=== PATIENT | female | born 1955 | race Caucasian/White ===

== ENCOUNTER → 2018-02-04 17:42 | Outpatient (REF) | payer OTHER, SELFPAY | LOC: LAB 17:42 | PROVIDERS: PCP Physician Assistant; Visit Provider Otolaryngology Facial Plastic Surgery | DX: L72.0 Epidermal cyst (principal) | CPT/HCPCS: 87070; 87147; 87205 ==

== ENCOUNTER → 2018-05-21 11:29 | Outpatient (CLI) | payer OTHER, SELFPAY ==
--- NOTE | 2018-05-21 | DI.MG.S_ITS ---
BILATERAL DIGITAL SCREENING MAMMOGRAM 3D/2D WITH CAD: 05/21/2018 CLINICAL: Routine screening. Family history of breast cancer. Comparison is made to exams dated: 03/03/2015 mammogram, 06/03/2013 mammogram, and 05/10/2012 mammogram - [facility]. The tissue of both breasts is heterogeneously dense. This may lower the sensitivity of mammography. Current study was also evaluated with a Computer Aided Detection (CAD) system. No significant masses, calcifications, or other findings are seen in either breast. There has been no significant interval change. IMPRESSION: NEGATIVE There is no mammographic evidence of malignancy. A 1 year screening mammogram is recommended. This exam was interpreted at Station ID: [id number]. NOTE: For mammograms, a report in lay terms will be sent to the patient. Approximately 15% of breast malignancies will not be visualized mammographically. In the management of a palpable breast mass, a negative mammogram must not discourage biopsy of a clinically suspicious lesion. Electronically Signed By: Carlos A goodman/linden:05/21/2018 16:31:46 copy to: [employer]EL [employer] letter sent: Normal Exam ACR BI-RADS Category 1: Negative 3341F
--- NOTE | 2018-05-21 11:32 | DI.MRI.S_ITS ---
PROCEDURE: MR HEAD/BRAIN WO CON INDICATIONS: Change in headaches the past 2 years TECHNIQUE: Non-contrast axial T1 spin echo, axial T2 fast spin echo, sagittal and axial FLAIR, coronal T2 fast spin echo, axial gradient echo, axial diffusion and ADC through the brain. COMPARISON: None. FINDINGS: Image quality: Excellent. CSF spaces: Ventricles appear symmetric in size and shape. Basal cisterns are patent. No extra-axial fluid collections. Brain: No intracranial bleeds or mass effects. There is mild cerebral volume loss for age. There are mild periventricular and deep white matter chronic small vessel ischemic changes. Brainstem appears normal. Diffusion-weighted images show no acute ischemic insults. No chronic ischemic insults. Normal intravascular flow voids are present. Skull and face: Calvarial bone marrow is normal in signal. Orbits are normal. Sinuses: Sinuses and mastoids are clear. IMPRESSION: 1. No acute intracranial abnormalities. 2. Mild age appropriate cerebral volume loss and chronic microvascular ischemic changes. Dictated by: Yunier Stone M.D. on 05/21/2018 at 13:10 Approved by: Yunier Stone M.D. on 05/21/2018 at 17:44
== END ==
PROVIDERS: PCP Physician Assistant; Visit Provider Family Medicine
DX: Z12.31 Encounter for screening mammogram for malignant neoplasm of breast (principal); G43.709 Chronic migraine without aura, not intractable, without status migrainosus; Z80.3 Family history of malignant neoplasm of breast
CPT/HCPCS: 70551; 77063; 77067

== ENCOUNTER → 2019-04-22 13:58 | Outpatient (ROUT) | payer OTHER, SELFPAY ==
[2019-04-22 14:05] LABS: Add Manual Diff / Slide Review NO; Basophils Absolute Auto 0 /uL (0-100); Basophils Percent Auto 0.8 % (0-2); Eosinophils Absolute Auto 100 /uL (0-450); Eosinophils Percent Auto 2.1 % (2-4); Hematocrit 40.3 % (36-46); Hemoglobin 13.9 g/dL (12.0-16.0); Lymphocytes Absolute Auto 1200 /uL (1100-4500); Lymphocytes Percent Auto 29.8 % (25-40); Mean Corpuscular HGB Conc 34.3 % (30-36); Mean Corpuscular Hemoglobin 31.7 PG (26-34); Mean Corpuscular Volume 92.4 fL (80-100); Monocytes Absolute Auto 300 /uL (0-900); Monocytes Percent Auto 6.8 % (3-14); Neutrophils Absolute Auto 2400 /uL (1500-7000); Neutrophils Percent Auto 60.5 % (50-75); Platelet Count 219 X10^3/uL (150-400); Red Blood Cell Count 4.37 X10^6/uL (4.0-5.2); Red Cell Distribution Width 12.4 % (11.6-14.8)
[2019-04-22 14:12] LABS: Alanine Aminotransferase 26 IU/L (<35); Albumin 4.6 g/dL (3.5-5.0); Albumin Globulin Ratio 1.6 (1.0-2.8); Alkaline Phosphatase 72 U/L (38-126); Aspartate Aminotransferase 23 IU/L (14-36); BUN Creatinine Ratio 21.4 (6-22); Bilirubin Total 0.5 mg/dL (0.2-1.3); Blood Urea Nitrogen 15 mg/dL (7-17); Carbon Dioxide 26 mmol/L (22-32); Chloride 102 mmol/L (98-107); Cholesterol 233 mg/dL (140-199); Estimated Glomerular Filt Rate > 60.0 mL/min (>60); Globulin 2.8 g/dL (1.7-4.1); Glucose 95 mg/dL (80-110); HDL Cholesterol 79 mg/dL (40-60); HEMOLYSIS < 15 (0-50); LDL Cholesterol Calculated 145 mg/dL (<100); Potassium 4.1 mmol/L (3.4-5.1); Sodium 139 mmol/L (137-145); Total Protein 7.4 g/dL (6.3-8.2); Triglycerides 45 mg/dL (35-150)
[2019-04-22 14:42] LABS: TSH w/ Reflex to FT4 1.27 uIU/mL (0.47-4.68)
== END ==
PROVIDERS: PCP Physician Assistant; Visit Provider Physician Assistant
DX: E03.9 Hypothyroidism, unspecified (principal); E78.5 Hyperlipidemia, unspecified
CPT/HCPCS: 80053; 80061; 84443; 85025

== ENCOUNTER → 2019-10-20 11:50 | Outpatient (CLI) | payer OTHER, SELFPAY ==
--- NOTE | 2019-10-20 | DI.MG.S_ITS ---
BILATERAL DIGITAL SCREENING MAMMOGRAM 3D/2D WITH CAD: 10/20/2019 CLINICAL: Routine screening. Family history of breast cancer. Comparison is made to exams dated: 05/21/2018 mammogram, 03/03/2015 mammogram, and 06/03/2013 mammogram - [facility]. The tissue of both breasts is heterogeneously dense. This may lower the sensitivity of mammography. Current study was also evaluated with a Computer Aided Detection (CAD) system. No significant masses, calcifications, or other findings are seen in either breast. There has been no significant interval change. IMPRESSION: NEGATIVE There is no mammographic evidence of malignancy. A 1 year screening mammogram is recommended. This exam was interpreted at Station ID: [id number]. NOTE: For mammograms, a report in lay terms will be sent to the patient. Approximately 15% of breast malignancies will not be visualized mammographically. In the management of a palpable breast mass, a negative mammogram must not discourage biopsy of a clinically suspicious lesion. Electronically Signed By: Lina rodriguez/linden:10/20/2019 15:01:22 copy to: [employer] letter sent: Normal Exam ACR BI-RADS Category 1: Negative 3341F
== END ==
PROVIDERS: PCP Physician Assistant; Referring Provider Physician Assistant; Visit Provider Physician Assistant
DX: Z12.31 Encounter for screening mammogram for malignant neoplasm of breast (principal); Z80.3 Family history of malignant neoplasm of breast
CPT/HCPCS: 77063; 77067

== ENCOUNTER → 2020-11-18 11:13 | Outpatient (CLI) | payer MEDICARE, OTHER, SELFPAY | PROVIDERS: PCP Physician Assistant; Referring Provider Physician Assistant; Visit Provider Physician Assistant | DX: Z13.820 Encounter for screening for osteoporosis (principal); M85.851 Other specified disorders of bone density and structure, right thigh; Z78.0 Asymptomatic menopausal state | CPT/HCPCS: 77080 ==

== ENCOUNTER → 2021-12-28 07:50 | Outpatient (CLI) | payer MEDICARE, OTHER, SELFPAY ==
--- NOTE | 2021-12-28 07:53 | DI.MG.S_ITS ---
BILATERAL DIGITAL SCREENING MAMMOGRAM 3D/2D WITH CAD: 12/28/2021 CLINICAL: Routine screening. Family history of breast cancer. Comparison is made to exams dated: 10/20/2019 mammogram, 05/21/2018 mammogram, and 03/03/2015 mammogram - [facility]. Both breasts are heterogeneously dense, which may obscure small masses (category c / 51-75% glandular tissue). Current study was also evaluated with a Computer Aided Detection (CAD) system. No significant masses, calcifications, or other findings are seen in either breast. There has been no significant interval change. IMPRESSION: NEGATIVE There is no mammographic evidence of malignancy. A 1 year screening mammogram is recommended. Based on Tyrer-Cuzick model (a risk assessment model), the patient's lifetime risk is 28.7% and her 10 year risk is 15.4%. If a patient has an elevated risk, a more comprehensive evaluation should be considered and/or a referral to a genetic counselor. The [place] [employer], [employer], and NCCN Guidelines advise the consideration of Breast MRI as an adjunct to screening mammography in patients whose Lifetime risk to develop breast cancer is 20% or higher. This exam was interpreted at Station ID: [id number]. NOTE: For mammograms, a report in lay terms will be sent to the patient. Approximately 15% of breast malignancies will not be visualized mammographically. In the management of a palpable breast mass, a negative mammogram must not discourage biopsy of a clinically suspicious lesion. Electronically Signed By: Cheko Cat M.D., jr/linden:12/28/2021 13:33:25 copy to: [employer] letter sent: Normal Exam ACR BI-RADS Category 1: Negative 3341F
== END ==
PROVIDERS: PCP Internal Medicine; Visit Provider Physician Assistant
DX: Z12.31 Encounter for screening mammogram for malignant neoplasm of breast (principal); Z80.3 Family history of malignant neoplasm of breast
CPT/HCPCS: 77063; 77067

== ENCOUNTER → 2022-06-07 16:44 | Outpatient (CLI) | payer MEDICARE, OTHER, SELFPAY ==
--- NOTE | 2022-06-07 | DI.RAD.S_ITS ---
PROCEDURE: XR HIP W PEL IF DONE LUCIAN MIN 4V INDICATIONS: RT HIP PAIN TECHNIQUE: AP pelvis with lateral view(s) of the right and left hip(s). COMPARISON: None. FINDINGS: Bones: No fractures or dislocations. Pelvic ring appears intact. No suspicious bony lesions. Mild joint space narrowing of both hips. Soft tissues: The visualized bowel gas pattern is normal. No suspicious soft tissue calcifications. IMPRESSION: Mild degenerative changes of both hips. Dictated by: Carter Barber M.D. on 06/08/2022 at 9:45 Approved by: Carter Barber M.D. on 06/08/2022 at 9:48
== END ==
PROVIDERS: PCP Physician Assistant; Referring Provider Physician Assistant; Visit Provider Physician Assistant
DX: M25.551 Pain in right hip (principal)
CPT/HCPCS: 73522

== ENCOUNTER → 2022-06-14 09:03 | Outpatient (CLI) | payer MEDICARE, OTHER, SELFPAY ==
--- NOTE | 2022-06-14 | DI.MRI.S_ITS ---
PROCEDURE: MR LUMBAR SPINE WO CON INDICATIONS: Lumbago with sciatica, right side TECHNIQUE: Noncontrast sagittal T1 spin echo and T2 fast echo, sagittal STIR, and T2 fast spin echo through the lumbar spine. In cases with scoliosis, additional coronal T2 fast spin echo may be performed. COMPARISON: None. FINDINGS: Image quality: Excellent. Alignment and Curvature: There is normal bony alignment. Bone Marrow: Marrow is of normal overall signal. No acute vertebral body compression fractures. Spinal Cord: Conus medullaris terminates at the L1 level. Visualized cord demonstrates normal signal and size. Paraspinous Soft Tissues: No paravertebral masses. T12-L1: Normal appearance. L1-L2: Normal appearance. L2-L3: Disc desiccation. Broad-based disc bulge and disc osteophyte complex causes mild spinal canal narrowing. L3-L4: Disc desiccation. Broad-based disc bulge with mild spinal canal narrowing. Mild facet arthrosis. L4-L5: Disc desiccation. Broad-based disc bulge and ligamentum flavum hypertrophy causes moderate spinal canal narrowing. Mild right neural foraminal narrowing. L5-S1: Disc desiccation and broad-based disc bulge. Ligamentum flavum hypertrophy and mild facet arthrosis. IMPRESSION: Mild, multilevel degenerative disc disease and facet arthrosis, most prominent at L4-5 with moderate spinal canal narrowing and mild right neural foraminal narrowing due to degenerative disc disease, ligamentum flavum hypertrophy and facet arthrosis. Dictated by: Ethan Mahajan M.D. on 06/14/2022 at 10:51 Approved by: Ethan Mahajan M.D. on 06/14/2022 at 11:00
== END ==
PROVIDERS: PCP Physician Assistant; Referring Provider Physician Assistant; Visit Provider Physician Assistant
DX: M51.16 Intervertebral disc disorders with radiculopathy, lumbar region (principal); M51.17 Intervertebral disc disorders with radiculopathy, lumbosacral region; M47.26 Other spondylosis with radiculopathy, lumbar region; M47.27 Other spondylosis with radiculopathy, lumbosacral region; M25.551 Pain in right hip
CPT/HCPCS: 72148

== ENCOUNTER → 2022-10-18 09:00 | Outpatient (CLI) | payer MEDICARE, OTHER, SELFPAY ==
[2022-10-18 12:11] LABS: Add Manual Diff / Slide Review NO; Basophils Absolute Auto 0 /uL (0-100); Basophils Percent Auto 0.9 % (0-2); Eosinophils Absolute Auto 100 /uL (0-450); Eosinophils Percent Auto 1.8 % (2-4); Hemoglobin 13.7 g/dL (12.0-16.0); Lymphocytes Absolute Auto 900 /uL (1100-4500); Lymphocytes Percent Auto 26.6 % (25-40); Mean Corpuscular HGB Conc 34.4 % (30-36); Mean Corpuscular Hemoglobin 31.3 PG (26-34); Mean Corpuscular Volume 91.2 fL (80-100); Monocytes Absolute Auto 200 /uL (0-900); Monocytes Percent Auto 6.4 % (3-14); Neutrophils Absolute Auto 2200 /uL (1500-7000); Neutrophils Percent Auto 64.3 % (50-75); Platelet Count 237 X10^3/uL (150-400); Red Blood Cell Count 4.39 X10^6/uL (4.0-5.2); Red Cell Distribution Width 12.7 % (11.6-14.8); White Blood Cell Count 3.5 X10^3/uL (4.5-11.0)
[2022-10-18 12:29] LABS: BUN Creatinine Ratio 24.6 (6-22); Blood Urea Nitrogen 15 mg/dL (7-17); Calcium 9.8 mg/dL (8.4-10.2); Carbon Dioxide 27 mmol/L (22-32); Chloride 95 mmol/L (98-107); Estimated Glomerular Filt Rate > 60 mL/min (>60); Glucose 79 mg/dL (80-110); HEMOLYSIS < 15 (0-50); Sodium 131 mmol/L (137-145)
[2022-10-19 07:43] LABS: Labcorp Hemoglobin (Hb) A1c 5.5 % (4.8-5.6)
== END ==
PROVIDERS: PCP Physician Assistant; Referring Provider Orthopaedic Surgery Orthopaedic Surgery of the Spine; Visit Provider Orthopaedic Surgery Orthopaedic Surgery of the Spine
DX: Z01.818 Encounter for other preprocedural examination (principal); R73.9 Hyperglycemia, unspecified; Z01.812 Encounter for preprocedural laboratory examination
CPT/HCPCS: 36415; 80048; 83036; 85025; 93005

== ENCOUNTER 2022-11-20 08:43 | Inpatient (IN) | payer MEDICARE, OTHER, SELFPAY ==
[2022-10-31 09:54] VITALS: BMI 24.0
[2022-11-20] VITALS (15 sets, daily range): BP systolic 104–132; BP diastolic 57–86; PULSE 70–100; RESP 14–21; TEMP 35.9–36.8; O2SAT 95–100; BMI 24.0
[2022-11-20] MEDS: LACTATED RINGERS 1,000 ML 42 ML IV ×2 (09:37→12:44)
--- NOTE | 2022-11-20 10:24 | PM.PREOP ---
Pre-operative Note COVID-19 Criteria for continued procedure: Expected advancement of disease process, Possibility delay results in more complex future surgery or treatment, Increased loss of function, Continuing or worsening of significant or severe pain, Deterioration of the patient's condition or overall health and Delay expected to result in less-positive ultimate med/surg outcome Interval Note History & Physical reviewed/Exam performed by Physician: Yes Changes to H&P: No
[2022-11-20] MEDS: CEFAZOLIN 2 GM/100 ML PREMIX 100 ML IV ×2 (11:05→18:07)
--- NOTE | 2022-11-20 11:24 | SUR.OPER ---
Prone on spine table, head in foam head support, padded chest and pelvic supports, gel pad at knees, lower legs supported by pillows; nipples, genitalia and toes free of pressure, arms secured on foam padded arm boards at <90 degrees abduction. Tape over blanket at thigh secured to table.
[2022-11-20] MEDS: BUPIVACAINE 0.25% (PF) 60 ML, EPINEPHrine 0.15 MG INJ (12:03)
[2022-11-20] MEDS: BUPIVACAINE LIPOSOME 266 MG/20 ML VIAL INJ (12:53)
--- NOTE | 2022-11-20 13:04 | P.OP_ITS ---
Operative Date/Time/Diagnoses Date of procedure: 11/20/22 Time of procedure: 10:45 Pre-op diagnosis: 1. L4-5 spondylolisthesis 2. L4-5 spinal stenosis with radiculopathy Post-op diagnosis: same Procedure & Clinicians Procedure: 1. L4-5 Postero-lateral and posterior interbody fusion 2. L4-5 interbody cage placement. 3. L4-5 decompressive laminectomy with bilateral facetecomies 4. L4-5 Posterior non-segmental instrumentation 5. [place] of bone marrow from iliac crest 6. Utilization of microsurgical technique and operating microscope Same procedure as scheduled: Yes Indications: Patient has been having chronic back pain and worsening lumbar radiculopathy. Patient failed multiple conservative management with worsening pain weakness and numbness in her lower extremity. Patient has been having difficulty performing activity of daily living. After discussing risks benefits of treatment options, patient elected proceed with surgery. Surgeon: Noel Zee Packer Operator Automatic: Mabel Craven Click Yes if Unassisted: No Anesthesia Type: General Operative Notes Closure Type: primary Specimen(s): none sent Prosthetic devices, grafts, tissues, transplants, or devices: Globus revolve screws, Rise cage Estimated Blood Loss (mL): 50 Blood products transfused: none Procedure in detail: Patient was seen in the preoperative area. Risks and benefits of the surgery was discussed with the patient. Informed consent was obtained from the patient and placed in the chart. Surgical site was marked. Patient was taken to the operative room. General anesthesia was administered. Prophylactic antibiotic was given to the patient less than 30 min before the incision was made. Patient was placed into a prone position on the Silvino table. Patient's back was then prepped and draped in the sterile fashion. Time-out was performed at this time. Using AP and lateral C-arm imaging the interval between L4-5 was identified and marked on patient's back. A 2 inch incision 2 in from midline was made on the right side first. The fascia was incised in line with skin incision. Globus MARS retractors was placed inside the incision and docked onto the L4 lamina. Using microsurgical technique and operating microscope, a L4 laminectomy and L4- 5 facetectomy was performed using a Kerrison rongeur. The laminectomy and facetectomy was performed in order to decompress patient's cauda equina as well as the nerve roots exiting at the L4-5 level. The disc space at L4-5 was identified. And a total diskectomy was performed at L4-5 level. The endplates were decorticated using a rasp and shaver. The total diskectomy and decortication was performed at L4-5 level in order to to accomplish a L4-5 fusion. The local bone from the laminectomy and facetectomy was saved for local bone grafting. After the total diskectomy and decortication was completed, Tr ifecta bone graft material was combined with local bone that was harvested earlier. At this time, a separate skin is incision was made over the iliac crest. A Jamshidi needle was inserted into the iliac crest through a separate skin incision. 5 cc of bone marrow aspiration was obtained through the separate skin incision using a Jamshidi needle from the iliac crest. The bone marrow aspiration was combined with local bone and the Trifecta bone grafting material. The bone grafting material was placed into the L4-5 interbody space along with a expandable cage. The cage was expanded to its maximum height using the torque limiting screwdriver. At this time a mirror image incision was made on the left side. The fascia was incised in line with the skin incision. Globus MARS retractor was inserted and docked onto the L4-5 posterolateral gutter. Using the power drill, posterior- lateral decortication was performed at L4-5 level until bleeding cortical bone was identified. The remaining bone grafting material was placed into the L4-5 posterior lateral gutter he order to accomplish posterolateral fusion at the L4- 5 level. Using the double C-arm technique, pedicle screws were placed into the L4-5 pedicles bilaterally. This was done by placing the Jamshidi needle into the pedicles, then placing the guidewires over the Jamshidi needle, and finally placing the cannulated screws over the guidewires bilaterally. After the pedicle screws were placed, 2 titanium rods was locked into the heads of the pedicle screws using locking caps and torque limiting screwdriver. After all the hardware was placed, and confirmed with AP and lateral C-arm imaging, the wound was then irrigated with sterile normal saline and packed with Ray-Del gauze for 3 min to accomplish hemostasis. After the gauze was removed the deep fascia was closed with #1 Vicryl suture. The subcutaneous layer was closed with 2-0 Vicryl. The skin was closed with skin edenilson. Patient tolerated the procedure well. There were no complications. The Operation could not have been safely performed without compromising the technical result or length of the procedure, without the assistance of a skilled ophthalmology surgical technician. The ophthalmology surgical technician was medically necessary for proper positioning, retraction and manipulation of instruments, proper exposure, surgical preparation, and manipulation of tissue. Complications: none Post-operative Condition: stable Disposition: PACU Plan for aftercare: Admit to inpatient hospital
--- NOTE | 2022-11-20 13:18 | DI.RAD.S_ITS ---
PROCEDURE: XR LUMBAR SPINE 2-3V INDICATIONS: L4-L5 TLIF TECHNIQUE: 2 intraoperative views of the lumbar spine were obtained. COMPARISON: [facility] ISELA King, LUMBAR TRANSFORAMINAL ABBY, 07/25/2022, 8:24. FINDINGS: Bones: 2 intraoperative views of the lumbar spine demonstrate posterior spinal fixation of L4-L5 and discectomy. Hardware appears grossly intact. IMPRESSION: Intraoperative guidance was provided. Dictated by: Mac Day M.D. on 11/20/2022 at 13:27 Approved by: Mac Day M.D. on 11/20/2022 at 13:28
[2022-11-20] MEDS: HYDROMORPHONE 1 MG INJ IV ×2 (13:34→13:45)
[2022-11-20] MEDS: ONDANSETRON 4 MG/2 ML INJ IV (13:35)
[2022-11-20] MEDS: OXYCODONE IR 5 MG TABLET PO ×2 (13:35→14:08)
[2022-11-20] MEDS: LORazepam 2 MG/ML INJ 0.25 MG IV (13:45)
[2022-11-20] MEDS: LACTATED RINGERS 1,000 ML 125 ML IV (16:09)
[2022-11-20] MEDS: hydrOXYzine pamoate 25 MG CAPSULE PO ×2 (18:11→22:33)
[2022-11-20] MEDS: OXYCODONE IR 10 MG TABLET PO ×2 (18:11→21:15)
[2022-11-20] MEDS: DOCUSATE 100 MG CAPSULE PO (21:15)
[2022-11-20] MEDS: DULOXETINE 30 MG CAPSULE PO (21:15)
[2022-11-20] MEDS: MELATONIN 3 MG TABLET 6 MG PO (21:16)
[2022-11-20] MEDS: polyethylene glycoL 3350 17 GM POWD.PACK PO (21:16)
[2022-11-20] MEDS: TRAZODONE 50 MG TABLET PO (21:16)
[2022-11-20] MEDS: ACETAMINOPHEN 325 MG TABLET 650 MG PO (22:33)
[2022-11-21] MEDS: OXYCODONE IR 10 MG TABLET PO ×7 (00:14→23:51)
[2022-11-21] MEDS: LACTATED RINGERS 1,000 ML 125 ML IV ×2 (00:14→17:34)
[2022-11-21] MEDS: CEFAZOLIN 2 GM/100 ML PREMIX 100 ML IV (02:32)
[2022-11-21] MEDS: LEVOTHYROXINE 75 MCG TABLET PO (05:34)
[2022-11-21] MEDS: hydrOXYzine pamoate 25 MG CAPSULE PO (05:37)
[2022-11-21] MEDS: ACETAMINOPHEN 325 MG TABLET 650 MG PO ×4 (05:37→23:12)
--- NOTE | 2022-11-21 07:24 | PC.NURSE ---
LR paused this AM per patient request, passed on to AM nurse.
--- NOTE | 2022-11-21 07:48 | PM.DS.1 ---
History of Present Illness History of Present Illness Date Patient Seen: 11/21/22 Time Patient Seen: 07:48 Chief complaint: Back pain Narrative: Back pain has been moderate. Denies fever chills. No nausea vomiting. Patient's is home and available to assist her. Discharge Providers Provider Date of admission: 11/20/22 08:43 Discharge Date: 11/21/22 Primary care physician: Janice Melendez PA-C Consults: 11/20/22 14:10 Consult to Occupational Therapy Evaluate & Treat Comment: Physician Instructions: Evaluate and treat Consult to Physical Therapy Evaluate & Treat Comment: Physician Instructions: Evaluate and Treat Discharge provider: Getachew Busch PA-C Summary Hospital Course Discharge Diagnosis: 1. L4-5 spondylolisthesis 2. L4-5 spinal stenosis with radiculopathy Hospital Course: 1. L4-5 Postero-lateral and posterior interbody fusion 2. L4-5 interbody cage placement. 3. L4-5 decompressive laminectomy with bilateral facetecomies 4. L4-5 Posterior non-segmental instrumentation 5. [place] of bone marrow from iliac crest 6. Utilization of microsurgical technique and operating microscope Same procedure as scheduled: Yes Indications: Patient has been having chronic back pain and worsening lumbar radiculopathy. Patient failed multiple conservative management with worsening pain weakness and numbness in her lower extremity.? Patient has been having difficulty performing activity of daily living.? After discussing risks benefits of treatment options, patient elected proceed with surgery. Surgeon: Noel Zee Supervisor [employer]: Mabel Craven Click Yes if Unassisted: No Anesthesia Type: General Operative Notes Closure Type: primary Specimen(s): none sent Prosthetic devices, grafts, tissues, transplants, or devices: Globus revolve screws, Rise cage Estimated Blood Loss (mL): 50 Blood products transfused: none Patient admitted to the hospital for the above-mentioned procedure. Patient consented to the same. Patient taken operating room on November 12, 2022 and underwent L4-L5 fusion. Patient back in her room recovering well as in stable condition. Patient was out bed yesterday evening. Patient's is home to assist her. Patient will mobilize with physical therapy this morning. Patient be discharged home after physical therapy is safe for home environment. Exam Vital Signs (past 8 hours): Oxygen Delivery Method Room Air Oxygen Flow Rate 0 Narrative Exam Narrative: 67-year-old female resting comfortably in bed in no apparent distress. Motor functions intact bilateral lower extremities. Sensation grossly intact to light touch bilateral lower extremities. Const General: cooperative and comfortable Nutritional Appearance: average body habitus Orientation: alert Resp Effort & Inspection: normal respiratory effort and able to speak in complete sentences PFSH Medical History Anxiety Chronic constipation History of COVID-19 (02/2022) Hypothyroidism Insomnia Migraines Numbness and tingling in both hands Sciatica Spinal stenosis, lumbar Surgical History Hx of colonoscopy No history of previous surgery Family History Father Alzheimer disease Mother Breast cancer Glaucoma Hypothyroid Social History household members: spouse Smoking Status: Former smoker alcohol intake: former Discharge Assessment & Plan Assessment and Plan Assessment: Patient progressing as expected status post L4-L5 fusion Plan of Treatment: Mobilize with physical therapy Multimodal pain management Discharge home today after physical therapy if safe for home environment. Discharge Plan Discharge Plan Patient Disposition: Home Discharge orders & Medications Prescriptions: New acetaminophen 325 mg Tablet 650 mg PO Q6H PRN (Reason: Fever/Mild Pain (1-3)) Qty: 60 0RF hydroxyzine pamoate 25 mg Capsule 25 mg PO Q4HR PRN (Reason: Nausea And Vomiting) Qty: 10 0RF oxycodone 10 mg Tablet 10 mg PO Q3H PRN (Reason: Pain, Severe (7-10)) Qty: 40 0RF Continued sumatriptan succinate 100 mg tablet 100 mg PO .COMPLEX Qty: 12 6RF Rx Instructions: 100 mg PO 1 at onset, may repeat after 2 hours.; max 2tabs/24 hours sumatriptan succinate 25 mg tablet 25 mg PO BID PRN (Reason: migraine headache) Qty: 45 2RF duloxetine 30 mg Capsule,Delayed Release(Dr/Ec) 30 mg PO BEDTIME azelastine 137 mcg (0.1 %) Aerosol,[place] 1 spray INTRANASAL BID PRN (Reason: Seasonal allergies) Rx Instructions: administer into each nostril trazodone 50 mg tablet 50 mg PO ONCE PM PRN (Reason: insomnia) sumatriptan succinate 100 mg tablet See Rx Instructions PO .COMPLEX Qty: 14 2RF Rx Instructions: take 1 tab at onset of headache; if no relief may repeat 1 tab in 2hr; max = 2 tabs/24 hrs PO ondansetron HCl [Zofran] 4 mg tablet 4 mg PO Q6H PRN (Reason: Migraines) levothyroxine 50 mcg capsule 75 mcg PO DAILY cholecalciferol (vitamin D3) 10,000 unit capsule 5,000 unit PO DAILY sumatriptan succinate 100 mg tablet See Rx Instructions PO .COMPLEX Qty: 9 5RF Rx Instructions: take 1 tab at onset of headache; if no relief may repeat 1 tab in 2hr; max = 2 tabs/24 hrs PO melatonin 5 mg capsule 5 mg PO .hs Follow up/Referrals: Noel Zee MD [Physician] - As previously scheduled (Follow up with Dr Zee on 11/30/2022 @ 10:10 am at [facility] office in [place].) Janice Melendez PA-C [Primary Care Provider] - Diet/Activity/Treatments Diet: Diet as Tolerated Activity: No deep bending or twisting at the waist. No lifting more than 10 pounds. Cold/Heat Therapy: Heating pad to low back as needed for pain. Skin/Wound/Dressing Care Report to your healthcare provider any signs of infection, such as:: chills, fever, night sweats, unusual drainage and unusual redness Dressing: May shower. Keep dressing as dry as possible. If dressing becomes wet or dirty, may remove and replace with clean, dry gauze. No bathing or otherwise soaking incisions. Do not apply any creams, lotions, or ointments to incisions. Visit Report/Discharge Packet Instructions: DI for Prescription Opioid Use, DI for Transforaminal Lumbar Interbody Fusion Stand Alone Forms: Patient Portal/API, Stroke Signs & Symptoms, Surgery Discharge Discharge Data Primary Care Provider: Janice Melendez Quality VTE Deep Vein Thrombosis/Pulmonary Embolism Present on Admission: No
[2022-11-21 08:00] VITALS: BP 126/56; PULSE 76; RESP 18; TEMP 36.6; O2SAT 99
[2022-11-21] MEDS: DOCUSATE 100 MG CAPSULE PO ×2 (08:00→20:54)
--- NOTE | 2022-11-21 09:50 | OT.IP.EVAL ---
Current Diagnoses Spondylolisthesis, lumbar region (11/20/22) Spinal stenosis, lumbar region with neurogenic claudication (11/20/22) Surgery Performed Operation Date: 11/20/22 10:15 Actual Procedures p L4-5 TLIF - Noel Zee MD Past Medical History (Last Reviewed 11/21/22 @ 07:50 by Getachew Busch PA-C) Anxiety Chronic constipation History of COVID-19 (02/2022) Hypothyroidism Insomnia Migraines Numbness and tingling in both hands Sciatica Spinal stenosis, lumbar Surgical History (Last Reviewed 11/21/22 @ 07:50 by Getachew Busch PA-C) Hx of colonoscopy No history of previous surgery Occupational Therapy Inpatient Evaluation/Re-Eval M1 PT/OT-IP Prior Functional Status Start: 11/21/22 10:27 Freq: NEEDED Status: Active Protocol: Document 11/21/22 09:05 [facility] (Rec: 11/21/22 10:44 [facility] [id number]) Medical Review Prior Functional Status Medical History Reviewed Yes Diet/Fluid Consistency Regular Communication Independent Mobility and Gait Pt states had pain with walking and standing. Activities of Daily Living and IADL's Pt had pain with ADl and IADL needs. Social History Household Members spouse Living Arrangements House Number of Floors (Floors) One Floor Number of Stairs To Enter/Railing? 3 steps with no rails. Home Environment High Toilet,Walk in Shower,Tub /Shower,Bidet Home Equipment Front Wheel Walker,Hand Held Shower Additional Social History Comment Pt to be home to assist for the week before having to go back to work. Pt states has slept with her knee up in bed from the past year. M2 OT-IP Current Condition Start: 11/21/22 10:27 Freq: Status: Active Protocol: Document 11/21/22 09:05 [facility] (Rec: 11/21/22 10:44 [facility] [id number]) Occupational Therapy Current Condition Current Condition Evaluation Date 11/21/22 Treatment Diagnosis S/P L4-5 TLIF Diagnosis Onset Date 11/20/22 Post Operative Precautions Lumbar Precautions Log Roll,No Twisting,Limit Bending,Lifting Restriction of 10 lbs,Gait Belt above Incisional Area M3 OT- IP Subjective and Pain Start: 11/21/22 10:27 Freq: Status: Active Protocol: Document 11/21/22 09:05 [facility] (Rec: 11/21/22 10:44 [facility] [id number]) OT- Subjective Occupational Therapy Visit Type Type Initial Evaluation Visit Start Time 09:05 Visit Stop Time 09:50 Notes 45 Occupational Therapy Visit Comments Patient Comments Pt agreed to get up for OT eval and pt's present at the end of the session. Patient/Caregiver Goals To go home OT Pain Assessment Pain When Pain Assessed During Mobility Pain Present Pain Present Pain Reported Location Lower Back Intensity 7 Scale Used Numeric (0 - 10) M4 OT- IP ADL's Start: 11/21/22 10:27 Freq: Status: Active Protocol: Document 11/21/22 09:05 [facility] (Rec: 11/21/22 10:44 [facility] [id number]) OT IZT-Edjm-Xazfzmi General Evaluation Self-Feeding Ability Independent Comments OT Self-Feeding Comments Pt tends to eat with HOB tilted back and not wanting to get upright due to her back pain. OT ADL-Grooming Comments OT Grooming Comments Not performed as pt is too much pain. OT ADL-Oral Care Comments Oral Care Comments Pt states did this morning. OT ADL-Dressing General Eval Lower Body Dressing Ability Maximum Assistance Areas Needing Assistance Socks Comments OT Dressing Comments Educated pt on use of LB dressing equipment, pt states in too much pain to attempt at this time. Pt states at home with just wear pajamas without underwear to start. OT ADL-Toileting Comments OT Toileting Comments Pt has a bidet at home. Suggested to get a BSC and use of pads so not having to hurry to the bathroom at night . OT ADL-Bathing Comments OT Bathing Comments Not performed. Pt will benefit from getting a shower chair and non slip mat for home use. M5 OT- IP IADL's Start: 11/21/22 10:27 Freq: Status: Active Protocol: Document 11/21/22 09:05 [facility] (Rec: 11/21/22 10:44 [facility] [id number]) OT-Instrumental Activities of Daily Living Deficits IADL Deficits Identified Deficits Home Safety Awareness Awareness of Need for Assistance at Home Good Awareness Home Safety Comments Pt a little groggy at this time and pt will benefit from her to provide supervision and assist for all ADL and mobility needs. M6 OT- IP Functional Cognition Start: 11/21/22 10:27 Freq: Status: Active Protocol: Document 11/21/22 09:05 [facility] (Rec: 11/21/22 10:44 [facility] [id number]) Cognitive Factors Limiting Selfcare Function Cognitive Ability Level of Alertness Alert Patient Orientation Name,Place,Situation Attention Span Ability Capable of Focused Attention, Capable of Sustained Attention Ability to Follow Commands Able to Follow One Step Commands with Increased Time, Able to Follow One Step Commands with Repetition Safety Awareness Decreased Ability to Apply Precautions Cognitive Comments Cognitive Assessment Comments Pt needing step by step cues as a little anxious and fearful of her pain . OT- Vision and Hearing OT- Hearing Assessment OT- Hearing Assessment WFL OT- Vision Assessment Visual Acuity Glasses All The Time M7 OT- IP Mobility and Balance Start: 11/21/22 10:27 Freq: Status: Active Protocol: Document 11/21/22 09:05 [facility] (Rec: 11/21/22 10:44 [facility] [id number]) OT- Bed Mobility Assessment Supine to Sit Supine to Sit Assist Moderate Assistance Sit to Supine Sit to Supine Assist Moderate Assistance OT-Transfer Assessment Sit to and From Stand Sit to and from Stand Minimal Assistance Transfers Transfer Ability Minimal Assistance Technique Transfer Destination Bed,Chair Transfer Technique Stand Step Pivot Devices Transfer Assistive Devices Gait Belt,Front Wheeled Walker Comments Mobility Comments MODA and with heavy assist to use the bed rail to get to sidelying and MODA to assist to get her trunk upright. Pt tends to lean into posterior tilt to unweight her trunk. NEGRITA to stand to the FWW and heavy use of her BUE on the FWW to walk around the bed to the recliner. MIN/MODA to help lower to the recliner as pt is very fearful and in pain and having difficulty to hinge at her hips to bend in order to sit to the recliner. OT- Balance Assessment Sitting Balance and Reactions Static Sitting Balance Ability Fair Dynamic Sitting Balance Ability Poor Standing Balance and Reactions Static Standing Balance Ability Fair Dynamic Standing Balance Ability Fair Comments Other Balance Tests/Deviations/Treatment Pt leans into posterior tilt : in order to unwweight her trunk. M8 OT- IP Objective Assessments Start: 11/21/22 10:27 Freq: Status: Active Protocol: Document 11/21/22 09:05 [facility] (Rec: 11/21/22 10:44 [facility] [id number]) OT Gross Range of Motion Upper Extremity Range of Motion Assessment Within Functional Limits OT Strength Upper Extremity Strength Assessment Within Functional Limits OT-Muscle Tone Assessment Muscle Tone WNL Yes M9 OT- IP Assessment and Plan Start: 11/21/22 10:27 Freq: Status: Active Protocol: Document 11/21/22 09:05 [facility] (Rec: 11/21/22 10:44 [facility] [id number]) OT Summary Assessment and Plan Potential Rehabilitation Potential Good Analytic Complexity at Evaluation Low Summary OT Impairments Pain,Balance,Functional Mobility,Dressing,Toileting, Bathing,Toilet Transfers, Shower Transfers,Activity Tolerance Progress Towards Goals Slow Progress due to Pain,Slow Progress due to Medical Issues Assessment Summary Pt low complexity and main barriers are pain, having decreased BP after getting up drooping from 112/62 to 84/56 after getting to the recliner , steps and now needing assist for all ADl and mobility needs. Able to educated pt and her of [facility]- shower chair, BSC, associate web developer and also to get a hand held shower spray. Pt will benefit from pain control, more education incorporating her back precautions for ADl and mobility needs, and caregiver training. Pt to go home with assist when medically stable. Goals Self-Feeding Goal Independent Grooming Goal Independent Dressing Goal Minimal Assistance Toileting Goal Independent Bathing Goal Standby Assistance Toilet Transfer Goal Independent Shower Transfer Goal Standby Assistance Days to Meet Goals 10 Frequency of Treatment Frequency Of Treatment Once a Day Treatment Plan OT Treatment Plan ADL Training,Functional Mobility,Patient/Family Education,Discharge Planning Discharge Recommendations OT Discharge Recommendations Home with 24/ Assist Available Home Equipment Needs shower chair, non slip mats, hand held shower spray, BSC, bed rail Transportation Needs at Discharge Private Vehicle
[2022-11-21] MEDS: CHOLECALCIFEROL (VITAMIN D3) 5,000 UNIT TABLET 5000 UNIT PO (11:03)
[2022-11-21] MEDS: polyethylene glycoL 3350 17 GM POWD.PACK PO ×2 (11:04→20:56)
[2022-11-21 12:00] VITALS: BP 124/58; PULSE 74; RESP 18; TEMP 36.7; O2SAT 99
--- NOTE | 2022-11-21 12:24 | PT.IIE ---
Current Diagnoses Spondylolisthesis, lumbar region (11/20/22) Spinal stenosis, lumbar region with neurogenic claudication (11/20/22) Surgery Performed Operation Date: 11/20/22 10:15 Actual Procedures p L4-5 TLIF - Noel Zee MD Surgical History (Last Reviewed 11/21/22 @ 07:50 by Getachew Busch PA-C) Hx of colonoscopy No history of previous surgery Medical History (Last Reviewed 11/21/22 @ 07:50 by Getachew Busch PA-C) Anxiety Chronic constipation History of COVID-19 (02/2022) Hypothyroidism Insomnia Migraines Numbness and tingling in both hands Sciatica Spinal stenosis, lumbar Physical Therapy Inpatient Evaluation/Re-Eval M1 PT/OT-IP Prior Functional Status Start: 11/21/22 10:27 Freq: NEEDED Status: Active Protocol: Document 11/21/22 12:24 DLM (Rec: 11/21/22 13:00 DLM [id number]) Medical Review Prior Functional Status Medical History Reviewed Yes Diet/Fluid Consistency Regular Communication WNL, glasses Mobility and Gait Pt states had pain with walking and standing. No device used for gait. She could ambulate community distances. Activities of Daily Living and IADL's Pt had pain with ADl and IADL needs. She could bath and dress on her own. Prior Functional Level (Other details) she attended out-pt PT before surgery without pain relief Social History Household Members spouse Living Arrangements House Number of Floors (Floors) One Floor Number of Stairs To Enter/Railing? 3 steps with no rails. Home Environment High Toilet,Walk in Shower,Tub /Shower,Bidet Home Equipment Front Wheel Walker,Hand Held Shower Additional Social History Comment Pt to be home to assist for the week before having to go back to work. She has an adjustable bed, sleeps with head flat and knees up with pillows under thighs. M2 PT-IP Current Condition Start: 11/21/22 12:31 Freq: NEEDED Status: Active Protocol: Document 11/21/22 12:24 DLM (Rec: 11/21/22 13:00 DLM [id number]) Physical Therapy Current Condition Current Condition Evaluation Date 11/21/22 Treatment Diagnosis L4-5 TLIF, impaired gait and mobility Onset Date 11/20/22 M3 PT-IP Subjective Start: 11/21/22 12:31 Freq: NEEDED Status: Active Protocol: Document 11/21/22 12:24 DLM (Rec: 11/21/22 13:00 DL [id number]) Subjective Physical Therapy Visit Type Type Initial Evaluation Visit Start Time 11:45 Visit Stop Time 12:24 Total Visit Minutes 39 Number of RN LICENSED PRACTICAL Visits 0 Physical Therapy Visit Comments Patient Comments She reports the pain is in her back, not right LE today. She does not tolerate sitting up straight. Patient Goals Go home at discharge Therapy Pain Assessment Pain When Pain Assessed After Treatment Pain Present Pain Present Pain Reported Location Lower Back Intensity 4 Scale Used Numeric (0 - 10) Description Aching,With Movement Pain Behaviors Guarding M4 PT-IP Mobility and Gait Start: 11/21/22 12:31 Freq: NEEDED Status: Active Protocol: Document 11/21/22 12:24 DLM (Rec: 11/21/22 13:00 DL [id number]) PT-Bed Mobility Assessment Rolling Type of Rolling Log Rolling Sit to Supine Sit to Supine Minimal Assistance Scooting Scooting to Edge of Bed Standby Assistance PT-Transfer Assessment Sit to and From Stand Sit to and from Stand Contact Guard Assistance,Use of Upper Extremities Equipment Transfer Assistive Device Gait Belt,Front Wheeled Walker Transfers Transfer Destination Bed,Chair Transfer Technique Stand Step Pivot Transfer Ability Level of Assist Contact Guard Assistance,Use of Upper Extremities Comments Mobility Comments Pt has heavy dependence on UE' s for sit-stand and to lean posteriorly in sitting to manage her pain. She reports increased pain with attempts to sit up straight. She continues to depend on UE support on the FWW during transfers and gait. Gait Assessment Gait Gait Assistance Required: Contact Guard Assist Distance (Feet) 30 Assistive Devices Assistive Device Gait Belt,Front Wheeled Walker Gait Deviations General Gait Pattern Decreased Stride Length Factors Limiting Gait Function Factors Limiting Gait Function Abnormal Tonal Influences, Decreased Activity Tolerance, Decreased Strength,Limited Range of Motion,Pain,Poor Balance Comments Gait Comments She is dependent on bearing weight on UE's on the FWW during gait to manage her back pain. Her distances of gait are limited by her back pain. She reports no right LE pain when up moving; only back pain in incisional area. Stair Climbing Assessment Comments Stair Climbing Comments she is not able to tolerate stair training this visit due to back pain that limits activity tolerance PT-Balance Assessment Sitting Balance and Reactions Static Sitting Balance Ability Fair Dynamic Sitting Balance Ability Fair Standing Balance and Reactions Static Standing Balance Ability Fair Dynamic Standing Balance Ability Fair Device Used FWW Comments Other Balance Tests/Deviations/Treatment dependence on UE support in : sitting and standing limits her balance M5 PT-IP Objective Assessments Start: 11/21/22 12:31 Freq: NEEDED Status: Active Protocol: Document 11/21/22 12:24 DLM (Rec: 11/21/22 13:00 DL [id number]) Orientation Orientation/Cognition Level of Alertness Alert Orientation Name,Age,Birthday,Month,Date, Year,Day of Week,Place, Situation Language Function Ability No Deficits Noted Safety Awareness Understands Safety Issues Memory Description No Deficits Noted Comments glasses on patient Gross Range of Motion Upper Extremity ROM Assessment Within Functional Limits Lower Extremity ROM Assessment Within Functional Limits Impairments back pain moving hips Strength Upper Extremity Strength Assessment Within Functional Limits Lower Extremity Strength Assessment Bilaterally Impaired Ankle DF 5/5 Comments Strength Comments unable to fully muscle test due to high levels of back pain, moving actively and no complaints of weakness Coordination Assessment Gross Coordination Gross Coordination WNL Sensation Assessment Sensation Gross Sensation WNL Comments Sensation Comments no numbness/tingling reported Muscle Tone Muscle Tone WNL Yes M6 PT-IP Treatment Start: 11/21/22 12:31 Freq: NEEDED Status: Active Protocol: Document 11/21/22 12:24 DLM (Rec: 11/21/22 13:00 DL [id number]) Physical Therapy Treatment Education Education Provided Precautions,Safety Other Treatments Other Treatment Performed educated pt and her in spine precautions, initiated education in how her Spouse can assist during bed mobility M7 PT-IP Assessment and Plan Start: 11/21/22 12:31 Freq: NEEDED Status: Active Protocol: Document 11/21/22 12:24 DLM (Rec: 11/21/22 13:00 DL [id number]) PT Summary Assessment and Plan Potential Rehabilitation Potential Good Status of Condition at Evaluation Evolving Summary Impairments Pain,ROM,Strength,Balance,Bed Mobility,Transfers,Gait, Activity Tolerance Progress Towards Goals Slow Progress due to Pain,Slow Progress due to Activity Tolerance Assessment Summary Carolina is alert and resting in the recliner this visit. She is having difficulty managing her pain today. She reports severe increases in pain before her next pain medication is due. Timed this treatment after pain medication to assist with mobility tolerance. Her is present this visit. Pt is dependent on her UE's to assist with movement and weight bearing on the FWW to offload her back. She tolerated only short distances of gait in her room due to pain. Pt returned to bed at the end of this visit to rest and manage her pain. She needs pillows under her thighs and knees flexed in supine to manage her pain. She is not ready to discharge home at this time due to her pain and limited activity tolerance. Will plan to see her again this afternoon for physical therapy to continue her progression and determine if she can discharge today vs tomorrow. Anticipate she will be able to discharge with assist from her Spouse once she progresses more in therapy . Will do stair training as tolerated by her pain. Goals Bed Mobility Goal Independent Transfer Goal Independent,Front Wheeled Walker Gait Goal Independent,Front Wheel Walker Gait Distance 150 feet Other Goals up/down 3 steps Days to Meet Goals 2 Frequency of Treatment Frequency Of Treatment Twice a Day Treatment Plan Physical Therapy Treatment Plan Bed Mobility Training,Transfer Training,Gait Training, Therapeutic Exercise,Post Op Education,Discharge Planning, Hot or Cold Pack,Neuromuscular Re-ed Other Recommendations and Next Treatment education with her Spouse as Focus needed to assist at home Precautions Lumbar Precautions Log Roll,No Twisting,Limit Bending,Lifting Restriction of 10 lbs,Gait Belt above Incisional Area Weight Bearing Status Weight Bearing Status Weight Bear as Tolerated Recommendations To Nursing Amount of Assist Needed 1 Person Assist Discharge Recommendations PT Discharge Recommendations Home with Assistance Other Discharge Recommendations she is not ready to discharge home at this time Transportation Needs at Discharge Private Vehicle
--- NOTE | 2022-11-21 12:43 | CM.DANOTE ---
Initial Discharge Planning Assessment Pt is a 67-year old female inpt for lumbar fusion surgery (TLIF). PCP: Janice Carey Payor: Medicare RUNWAY MODEL met with pt/spouse to introduce self and role. Pt will be discharging later today after she is seen by PT for therapy. All DME is in the home ready for pt's arrival, no resource needs are identified for outpatient support. PT recommendations were home with precautions for movement and cares. No further d/c needs are identified at this time. is at bedside and will be transporting pt home. Discharge Planning/Care Management Advanced directive, confirm from FAMILY Start: 11/20/22 15:07 Freq: Q24H Status: Active Protocol: Document 11/20/22 15:07 MM (Rec: 11/20/22 15:50 MM [id number]) Advance Directive, confirm on record Time 15:50 Person contacted pt Copy received No CM Discharge Assessment Start: 11/21/22 12:38 Freq: Status: Active Protocol: Document 11/21/22 12:38 DPL (Rec: 11/21/22 12:42 DPL [id number]) Discharge Planning Assessment Advance Directives? Yes Advance Directives on File No History Provided By Patient,Significant Other Has Patient been admitted in last 30 No days? Prior Living Arrangements House Household Members spouse Type of transporation used prior to Drives own vehicle admit Independent with ADL's Yes Is patient alert and oriented? Yes Needs Assistance With Meal Prep,Managing Medications ,Home Chores / Shopping Comment Pt's spouse will providing assistance with all ADL's and IADL's. Caregiver for Another No Comment N/A DME Already Rented / Owned Bath Bench,Elevated Toilet Seat,FWW / Walker,Bedside Commode Comment Spouse was able to obtain DME from [employer] earlier today . Patient/Family Preference OP PT Therapy Comment Pt's Ortho provider will discuss outpatient PT when she returns for her f/u visit. Barriers to Discharge No Discharge Plan Home Transportation Arrangement N/A Referrals Initiated None needed Whiteboard Updated in Patient Room with Yes name and ext. # of Supervisor Industrial [employer] Education Review Status In Process Please Provide Date Initial DC 11/21/22 Assessment Was Performed Pre-Anesthesia Assessment Start: 10/31/22 09:54 Freq: Status: Active Protocol: Document 10/31/22 09:54 CAB (Rec: 10/31/22 10:55 CAB [id number]) Pre-Anesthesia Assessment Preferred Name Carolina Patient Information Reviewed Via Phone Assessment Assessment Completed With Patient Diagnostic Results BMP/CMP,CBC,EKG Comment Lab/EKG @ [facility] 10/18/22 Primary Care Provider Janice Melendez Seen Specialist in Last 12 Months Yes Specialist Seen Orthopedist Primary Language [place] Furnishings Conservator Required No Height 160.02 cm Weight 61.689 kg Body Mass Index (BMI) 24.0 Hearing Ability Normal Visual Assist Glasses Dentition Type Teeth, Natural Present Barriers to Learning None Hx Anesthesia Reactions Pt does not have prior surgical history Hx Family Anesthesia Reaction No Hx Malignant Hyperthermia No Hx Blood Transfusions No Anesthesia Review Requested No Director New Product No alcohol intake former Alcohol Intake Frequency Other: Does not drink due to migraines Smoking Status Former smoker how long ago did patient quit smoking Quit in 1978 Substance Use Type does not use Pain Present Pain Reported Musculoskeletal Symptoms Abnormal Gait,Back Pain, Difficulty Walking,Numbness, Radiating Pain into Limb, Tingling History of Falling (Recent or History of No ) Patient is completely paralyzed or No completely immobile Mental Status Oriented to own ability Is patient on oxygen? No Does patient have ASTORGA/SOB No Hx Sleep Apnea No Currently Taking a Beta [place] No Can You Climb a Flight of Stairs Without Yes SOB Hx Chest Pain No Hx SOB No Hx Syncope or Dizziness No Anti-Coagulant Therapy No Has a Video Operator No Cardiac Testing No Hx Pacemaker/ICD No Pacemaker Rep Required? No Cardiac Clearance Received Not Applicable Diet Type At Home Regular,Gluten Free Dysphagia No: Diary free Gastrointestinal Symptoms Constipation Chronic UTI No Urinary Catheter Present No Hx Urinary Self Catheterization No Diabetes No HgbA1C 5.5 Date 10/18/22 Patient No Lactating No Hx Drug Resistant Organism No Presence of External or Internal Medical No Devices Have you had any close contact with No someone diagnosed with COVID-19? Received a COVID vaccine? Yes Received all doses? Yes Marital Status Lives With spouse Current Living Arrangements House Number of Floors (Floors) One Floor Number of Stairs To Enter/Railing? 3, no railing Support System Spouse Does the Patient Have Assistance After Yes Surgery Patient Discharge Plan Description Return Home Comment Pt advised overnight length of stay per surgeon Feels Safe in Current Environment Yes Been Physically Hurt or Threatened By a No Person in Current Environment Do you have thoughts of harming yourself None or others? Are you currently considering suicide? No Do you have a plan to hurt yourself or No Plan others? Do You Have Any Spiritual Beliefs That No May Affect Your HC Choices? Do You Have Any Cultural Practices That No May Affect Your HC Choices? Who Can We Speak to About Patient's Care Family, friends Identifying Code for Release of Patient Declines to issue Information Health Care Proxy/Next of Kin Lidia Frederick () Health Care Proxy Emergency Contact Name Gee (son) Emergency Contact Advance Directives? No Power of Advisor [employer] F[employer] Yes Power of Advisor [employer] Founder Name Lidia Frederick () Power of Advisor [employer] Founder PAC Instructions Durable medical equipment, Medications to take/avoid, Nasal antibiotic,No ETOH/ petroleum product on skin DOS, NPO,Post-op transportation,Pre -surgical wash,Sturdy shoes/ comfortable clothes,Do not bring valuables and remove jewelry
--- NOTE | 2022-11-21 14:50 | PT.IPTN ---
Current Diagnoses Spondylolisthesis, lumbar region (11/20/22) Spinal stenosis, lumbar region with neurogenic claudication (11/20/22) Surgery Performed Operation Date: 11/20/22 10:15 Actual Procedures p L4-5 TLIF - Noel Zee MD Physical Therapy Treatment Note M2 PT-IP Current Condition Start: 11/21/22 12:31 Freq: NEEDED Status: Active Protocol: Document 11/21/22 12:24 DLM (Rec: 11/21/22 13:00 DLM [id number]) Physical Therapy Current Condition Current Condition Evaluation Date 11/21/22 Treatment Diagnosis L4-5 TLIF, impaired gait and mobility Onset Date 11/20/22 M3 PT-IP Subjective Start: 11/21/22 12:31 Freq: NEEDED Status: Active Protocol: Document 11/21/22 15:52 TS (Rec: 11/21/22 16:10 TS [id number]) Subjective Physical Therapy Visit Type Type Treatment Note Visit Start Time 14:50 Visit Stop Time 15:10 Total Visit Minutes 20 Notes Vitals: BP in sitting 96/43, standing 57/23. Number of [employer] Visits 1 Physical Therapy Visit Comments Patient Comments Pt found standing up with spouse in room, reports needing to use bathroom, agreeable to PT. Patient Goals Go home at discharge M4 PT-IP Mobility and Gait Start: 11/21/22 12:31 Freq: NEEDED Status: Active Protocol: Document 11/21/22 15:52 TS (Rec: 11/21/22 16:10 TS [id number]) PT-Transfer Assessment Sit to and From Stand Sit to and from Stand Minimal Assistance,Use of Upper Extremities Equipment Transfer Assistive Device Gait Belt,Front Wheeled Walker Comments Mobility Comments Pt found up with spouse standing EOB with FWW, agreeable to PT. Pt ambulated ~20' in room/ to toilet CGA with emerging step thru gait, had no buckling or LOB. Pt ambulated back to chair from bathroom for BP check. BP in sitting 96/43, pt denied any dizziness. Sit to stand Iman with FWW, pt leans back and uses BUE support on arms of chair to come into standing. Pt reported increased dizziness and lightheadedness, BP 57/23, pt sat back in chair. Pt not appropriate to continue to PT, was left with nursing and spouse in room. Gait Assessment Gait Gait Assistance Required: Contact Guard Assist Distance (Feet) 20 Assistive Devices Assistive Device Gait Belt,Front Wheeled Walker Gait Deviations General Gait Pattern Decreased Stride Length Factors Limiting Gait Function Factors Limiting Gait Function Abnormal Tonal Influences, Decreased Activity Tolerance, Decreased Strength,Limited Range of Motion,Pain,Poor Balance Comments Gait Comments See mobility comments. Stair Climbing Assessment Comments Stair Climbing Comments Not at this time PT-Balance Assessment Sitting Balance and Reactions Static Sitting Balance Ability Good Dynamic Sitting Balance Ability Fair Standing Balance and Reactions Static Standing Balance Ability Good Dynamic Standing Balance Ability Fair Device Used FWW M5 PT-IP Objective Assessments Start: 11/21/22 12:31 Freq: NEEDED Status: Active Protocol: Document 11/21/22 12:24 DL (Rec: 11/21/22 13:00 DL [id number]) Orientation Orientation/Cognition Level of Alertness Alert Orientation Name,Age,Birthday,Month,Date, Year,Day of Week,Place, Situation Language Function Ability No Deficits Noted Safety Awareness Understands Safety Issues Memory Description No Deficits Noted Comments glasses on patient Gross Range of Motion Upper Extremity ROM Assessment Within Functional Limits Lower Extremity ROM Assessment Within Functional Limits Impairments back pain moving hips Strength Upper Extremity Strength Assessment Within Functional Limits Lower Extremity Strength Assessment Bilaterally Impaired Ankle DF 5/5 Comments Strength Comments unable to fully muscle test due to high levels of back pain, moving actively and no complaints of weakness Coordination Assessment Gross Coordination Gross Coordination WNL Sensation Assessment Sensation Gross Sensation WNL Comments Sensation Comments no numbness/tingling reported Muscle Tone Muscle Tone WNL Yes M6 PT-IP Treatment Start: 11/21/22 12:31 Freq: NEEDED Status: Active Protocol: Document 11/21/22 15:52 TS (Rec: 11/21/22 16:10 [id number]) Physical Therapy Treatment Education Education Provided Precautions,Safety Other Treatments Other Treatment Performed Pt recalled 3/3 spinal precautions. M7 PT-IP Assessment and Plan Start: 11/21/22 12:31 Freq: NEEDED Status: Active Protocol: Document 11/21/22 15:52 TS (Rec: 11/21/22 16:10 [id number]) PT Summary Assessment and Plan Potential Rehabilitation Potential Good Summary Impairments Pain,ROM,Strength,Balance,Bed Mobility,Transfers,Gait, Activity Tolerance Progress Towards Goals Slow Progress due to Medical Issues Assessment Summary Carolina's pain is better controlled this afternoon and her mobility is improving but is limited by hypotension. BP in sitting 96/43, pt stood 57/ 23, she reported dizziness and feeling she was going to past out. Before that she did perform bed mobility with spouse who reported she did it on her own, [employer] did not witness. She ambulated ~20' w/ FWW CGA to restroom, she had no buckling or LOB. She performed sit to stand from chair extending her back, making it difficult to come into standing. Did not attempt stairs due to low BP. Caregiver training is setup for tomorrow at 8:00AM for stair training. Goals Bed Mobility Goal Independent Transfer Goal Independent,Front Wheeled Walker Gait Goal Independent,Front Wheel Walker Gait Distance 150 feet Other Goals up/down 3 steps Days to Meet Goals 2 Frequency of Treatment Frequency Of Treatment Twice a Day Treatment Plan Physical Therapy Treatment Plan Bed Mobility Training,Transfer Training,Gait Training, Therapeutic Exercise,Post Op Education,Discharge Planning, Hot or Cold Pack,Neuromuscular Re-ed Other Recommendations and Next Treatment education with her Spouse as Focus needed to assist at home, sit to stand technique, stairs. Precautions Lumbar Precautions Log Roll,No Twisting,Limit Bending,Lifting Restriction of 10 lbs,Gait Belt above Incisional Area Weight Bearing Status Weight Bearing Status Weight Bear as Tolerated Recommendations To Nursing Amount of Assist Needed 1 Person Assist Discharge Recommendations PT Discharge Recommendations Home with Assistance Other Discharge Recommendations she is not ready to discharge home at this time Transportation Needs at Discharge Private Vehicle
[2022-11-21 16:03] VITALS: BP 114/63; PULSE 68; RESP 18; TEMP 37; O2SAT 99
--- NOTE | 2022-11-21 19:44 | PC.NURSE ---
Patient experienced dizziness and low blood pressure when working with P.T. today. Resolved quickly with laying back down in chair. Getachew Busch notified of event and order to restart her IV fluids again received and completed. Discharge order for home cancelled for today. Patient encouraged to drink more water. Patient agrees with plan. Izabella FERNANDEZ states he will round on her again in the morning. Patient resting comfortably in bed at this time with eyes closed, call light within reach.
[2022-11-21] MEDS: MELATONIN 3 MG TABLET 6 MG PO (20:55)
[2022-11-21] MEDS: DULOXETINE 30 MG CAPSULE PO (20:55)
[2022-11-21] MEDS: SENNOSIDES 8.6 MG TABLET 17.2 MG PO (20:55)
[2022-11-21] MEDS: TRAZODONE 50 MG TABLET PO (21:00)
[2022-11-21 22:00] VITALS: BP 112/51; PULSE 74; RESP 14; TEMP 37.4; O2SAT 95
[2022-11-21 23:10] VITALS: TEMP 37.9
[2022-11-21 23:12] VITALS: TEMP 37.9
[2022-11-22 00:52] VITALS: TEMP 37.1
[2022-11-22 00:54] VITALS: TEMP 37.1
[2022-11-22] MEDS: LACTATED RINGERS 1,000 ML 125 ML IV (02:03)
[2022-11-22] MEDS: LEVOTHYROXINE 75 MCG TABLET PO (05:53)
[2022-11-22] MEDS: OXYCODONE IR 10 MG TABLET PO ×4 (05:55→15:33)
[2022-11-22] MEDS: ACETAMINOPHEN 325 MG TABLET 650 MG PO ×2 (05:56→12:00)
--- NOTE | 2022-11-22 07:53 | PM.PNPO.1 ---
Subjective Subjective Date Patient Seen: 11/22/22 Time Patient Seen: 07:53 Interval history: Patient was having pretty severe pain yesterday evening. Also was having some dizziness and hypotension with standing. Due to the dizziness she had limited work with physical therapy yesterday. Overnight her pain was better controlled. She was up a few times to the bathroom without any dizziness. She denies headache, shortness of breath or chest pain. Exam Vital Signs (past 8 hours): - 11/22/22 00:52 11/22/22 00:54 Temperature 98.8 F 98.8 F Oxygen Delivery Method Room Air Oxygen Flow Rate 0 Narrative Exam Narrative: 67-year-old female resting comfortably in bed in no apparent distress. Motor functions intact bilateral lower extremities. Const General: cooperative and comfortable Resp Effort & Inspection: normal respiratory effort and able to speak in complete sentences PFSH Medical History Anxiety Chronic constipation History of COVID-19 (02/2022) Hypothyroidism Insomnia Migraines Numbness and tingling in both hands Sciatica Spinal stenosis, lumbar Surgical History Hx of colonoscopy No history of previous surgery Family History Father Alzheimer disease Mother Breast cancer Glaucoma Hypothyroid Social History household members: spouse Smoking Status: Former smoker alcohol intake: former Assessment & Plan Post-op Postoperative Procedures: Procedures Operation Date: 11/20/22 10:15 Actual Procedure Side Surgeon p L4-5 TLIF Noel Zee MD Postoperative day: 2 Postoperative status narrative: Stable Postoperative plan narrative: Mobilize with physical therapy Multimodal pain management Discharge home today or tomorrow Quality VTE Deep Vein Thrombosis/Pulmonary Embolism Present on Admission: No
[2022-11-22 08:00] VITALS: BP 113/56; PULSE 72; RESP 17; TEMP 36.2; O2SAT 99
[2022-11-22] MEDS: DOCUSATE 100 MG CAPSULE PO (08:30)
[2022-11-22] MEDS: polyethylene glycoL 3350 17 GM POWD.PACK PO (08:30)
[2022-11-22] MEDS: MAGNESIUM HYDROXIDE 30 ML UDC PO (08:30)
[2022-11-22] MEDS: CHOLECALCIFEROL (VITAMIN D3) 5,000 UNIT TABLET 5000 UNIT PO (08:30)
--- NOTE | 2022-11-22 09:03 | PT.IPTN ---
Current Diagnoses Spondylolisthesis, lumbar region (11/20/22) Spinal stenosis, lumbar region with neurogenic claudication (11/20/22) Surgery Performed Operation Date: 11/20/22 10:15 Actual Procedures p L4-5 TLIF - Noel Zee MD Physical Therapy Treatment Note M2 PT-IP Current Condition Start: 11/21/22 12:31 Freq: NEEDED Status: Active Protocol: Document 11/21/22 12:24 DLM (Rec: 11/21/22 13:00 DLM [id number]) Physical Therapy Current Condition Current Condition Evaluation Date 11/21/22 Treatment Diagnosis L4-5 TLIF, impaired gait and mobility Onset Date 11/20/22 M3 PT-IP Subjective Start: 11/21/22 12:31 Freq: NEEDED Status: Active Protocol: Document 11/22/22 10:14 TS (Rec: 11/22/22 10:30 TS [id number]) Subjective Physical Therapy Visit Type Type Treatment Note Visit Start Time 09:03 Visit Stop Time 09:35 Total Visit Minutes 32 Notes Vitals: BP 123/57 supine, 114/ 40 sitting, 107/44 standing Number of [employer] Visits 2 Physical Therapy Visit Comments Patient Comments Pt found resting in bed, reports having a fever in the night but has since gone away, agreeable to PT. Patient Goals Go home at discharge M4 PT-IP Mobility and Gait Start: 11/21/22 12:31 Freq: NEEDED Status: Active Protocol: Document 11/22/22 10:14 TS (Rec: 11/22/22 10:30 TS [id number]) PT-Bed Mobility Assessment Rolling Type of Rolling Log Rolling Level of Assist Standby Assistance Supine to Sit Supine to Sit Minimal Assistance Sit to Supine Sit to Supine Minimal Assistance Scooting Scooting to Edge of Bed Standby Assistance Scooting Up and Down in Bed Standby Assistance PT-Transfer Assessment Sit to and From Stand Sit to and from Stand Contact Guard Assistance,Use of Upper Extremities Equipment Transfer Assistive Device Gait Belt,Front Wheeled Walker Comments Mobility Comments BP taken in supine prior to mobility 123/57. Logroll to L side SBA w/ use of handrails. Supine to sit Iman for uprighting trunk, provided cues for handplacement on bed and LEs over EOB. Pt sat EOB, BP 114/40, denied any dizziness. Sit to stand CGA w/ FWW, pt slow to stand due to pain. BP taken in standing 107 /44, pt continued to deny any dizziness. She ambulated ~200' SBA with FWW, pt uses heavy UE assist and has an emerging step thru gait. She performed steps x3 w/Iman and handheld assist for each UE, pt had x1 buckling on first attempt. Pt was brought back to room in w/ c. She performed sit to supine Iman for LEs into bed and cueing for sequencing. Pt was left in bed with spouse in room, all needs met, RN notified. Gait Assessment Gait Gait Assistance Required: Standby Assistance Distance (Feet) 200 Assistive Devices Assistive Device Gait Belt,Front Wheeled Walker Gait Deviations General Gait Pattern Decreased Stride Length Factors Limiting Gait Function Factors Limiting Gait Function Abnormal Tonal Influences, Decreased Activity Tolerance, Decreased Strength,Limited Range of Motion,Pain,Poor Balance Comments Gait Comments See mobility comments. Stair Climbing Assessment Evaluation Level of Assist On Stairs Minimal Assistance,2 Person Assistance Devices Stair Climbing Assistive Devices Left Railing,Right Railing Technique/Endurance Stair Climbing Direction Ascend and Descend Stair Climbing Technique Step to Step Number of Steps Climbed 3 Comments Stair Climbing Comments See mobility comments. PT-Balance Assessment Sitting Balance and Reactions Static Sitting Balance Ability Good Dynamic Sitting Balance Ability Fair Standing Balance and Reactions Static Standing Balance Ability Good Dynamic Standing Balance Ability Fair Device Used FWW M5 PT-IP Objective Assessments Start: 11/21/22 12:31 Freq: NEEDED Status: Active Protocol: Document 11/21/22 12:24 [facility] (Rec: 11/21/22 13:00 [facility] [id number]) Orientation Orientation/Cognition Level of Alertness Alert Orientation Name,Age,Birthday,Month,Date, Year,Day of Week,Place, Situation Language Function Ability No Deficits Noted Safety Awareness Understands Safety Issues Memory Description No Deficits Noted Comments glasses on patient Gross Range of Motion Upper Extremity ROM Assessment Within Functional Limits Lower Extremity ROM Assessment Within Functional Limits Impairments back pain moving hips Strength Upper Extremity Strength Assessment Within Functional Limits Lower Extremity Strength Assessment Bilaterally Impaired Ankle DF 5/5 Comments Strength Comments unable to fully muscle test due to high levels of back pain, moving actively and no complaints of weakness Coordination Assessment Gross Coordination Gross Coordination WNL Sensation Assessment Sensation Gross Sensation WNL Comments Sensation Comments no numbness/tingling reported Muscle Tone Muscle Tone WNL Yes M6 PT-IP Treatment Start: 11/21/22 12:31 Freq: NEEDED Status: Active Protocol: Document 11/22/22 10:14 TS (Rec: 11/22/22 10:30 TS [id number]) Physical Therapy Treatment Education Education Provided Precautions,Safety M7 PT-IP Assessment and Plan Start: 11/21/22 12:31 Freq: NEEDED Status: Active Protocol: Document 11/22/22 10:14 TS (Rec: 11/22/22 10:30 TS [id number]) PT Summary Assessment and Plan Summary Impairments Pain,ROM,Strength,Balance,Bed Mobility,Transfers,Gait, Activity Tolerance Progress Towards Goals Progressing Toward Goals Assessment Summary Carolina is progressing well with her mobility this session . She progressed her gait to ~ 200'SBA with FWW with an emerging step thru gait, has no buckling or LOB. She progressed her stairs to X3 with B handheld assist w/Iman, pt had x1 buckling on first attempt. She performed all bed mobility SBA/Iman, demonstrated good carryover of logroll technique. PT is recommending return home with assist from spouse. Pt will have spouse and to assist with stairs at home. Goals Bed Mobility Goal Independent Transfer Goal Independent,Front Wheeled Walker Gait Goal Independent,Front Wheel Walker Gait Distance 150 feet Other Goals up/down 3 steps Days to Meet Goals 2 Frequency of Treatment Frequency Of Treatment Twice a Day Treatment Plan Physical Therapy Treatment Plan Bed Mobility Training,Transfer Training,Gait Training, Therapeutic Exercise,Post Op Education,Discharge Planning, Hot or Cold Pack,Neuromuscular Re-ed Other Recommendations and Next Treatment education with her Spouse as Focus needed to assist at home, sit to stand technique, stairs. Precautions Lumbar Precautions Log Roll,No Twisting,Limit Bending,Lifting Restriction of 10 lbs,Gait Belt above Incisional Area Weight Bearing Status Weight Bearing Status Weight Bear as Tolerated Recommendations To Nursing Amount of Assist Needed 1 Person Assist Discharge Recommendations PT Discharge Recommendations Home with Assistance Other Discharge Recommendations she is not ready to discharge home at this time Transportation Needs at Discharge Private Vehicle
[2022-11-22 12:00] VITALS: BP 130/70; PULSE 69; RESP 17; TEMP 36.2; O2SAT 99
--- NOTE | 2022-11-22 12:07 | CM.DPC ---
DCP Cont. QUALIFICATIONS EXAMINER reviewed chart for continued d/c plan status. Per PT, pt is not yet ready for d/c for today. QUALIFICATIONS EXAMINER will continue to monitor.
--- NOTE | 2022-11-22 13:37 | CM.DPC ---
DCP Cont. Spoke with OT/PT, pt is requesting HH for outpatient once discharged. Due to d/c being imminent, this [employer] FRAMEWORK DEVELOPER called her PCP and requested that she order HH for outpatient. Pt aware.
--- NOTE | 2022-11-22 13:39 | OT.IP.TRT ---
Current Diagnoses Spondylolisthesis, lumbar region (11/20/22) Spinal stenosis, lumbar region with neurogenic claudication (11/20/22) Surgery Performed Operation Date: 11/20/22 10:15 Actual Procedures p L4-5 TLIF - Noel Zee MD Occupational Therapy Treatment Note M2 OT-IP Current Condition Start: 11/21/22 10:27 Freq: Status: Active Protocol: Document 11/21/22 09:05 [facility] (Rec: 11/21/22 10:44 [facility] [id number]) Occupational Therapy Current Condition Current Condition Evaluation Date 11/21/22 Treatment Diagnosis S/P L4-5 TLIF Diagnosis Onset Date 11/20/22 Post Operative Precautions Lumbar Precautions Log Roll,No Twisting,Limit Bending,Lifting Restriction of 10 lbs,Gait Belt above Incisional Area M3 OT- IP Subjective and Pain Start: 11/21/22 10:27 Freq: Status: Active Protocol: Document 11/22/22 13:00 [facility] (Rec: 11/22/22 14:00 [facility] [id number]) OT- Subjective Occupational Therapy Visit Type Type Treatment Note Visit Start Time 13:00 Visit Stop Time 13:39 Total Visit Minutes 39 Occupational Therapy Visit Comments Patient Comments Pt wanting to try to use the bathroom and shower. Patient/Caregiver Goals To go home. OT Pain Assessment Pain When Pain Assessed At Rest Pain Present Pain Present Pain Reported Location Lower Back Intensity 6 Scale Used Numeric (0 - 10) M4 OT- IP ADL's Start: 11/21/22 10:27 Freq: Status: Active Protocol: Document 11/22/22 13:00 [facility] (Rec: 11/22/22 14:00 [facility] [id number]) OT [id number] General Evaluation Self-Feeding Ability Independent Comments OT Self-Feeding Comments Pt still leaning in posterior tilt while in the recliner. OT ADL-Grooming Comments OT Grooming Comments Not performed. OT ADL-Oral Care Comments Oral Care Comments Not performed. OT ADL-Dressing General Eval Lower Body Dressing Ability Maximum Assistance Areas Needing Assistance Pants/Shorts,Socks Comments OT Dressing Comments Having to assist pt with her socks and pants as in too much pain. OT ADL-Toileting General Evaluation Toileting Ability Minimal Assistance,Moderate Assistance Comments OT Toileting Comments Pt will need assist for brief and pants management needs over her hips. OT ADL-Bathing Comments OT Bathing Comments Pt in too much pain and therefore decided to just sponge off while standing and sitting in the recliner. M5 OT- IP IADL's Start: 11/21/22 10:27 Freq: Status: Active Protocol: Document 11/21/22 09:05 [facility] (Rec: 11/21/22 10:44 [facility] [id number]) OT-Instrumental Activities of Daily Living Deficits IADL Deficits Identified Deficits Home Safety Awareness Awareness of Need for Assistance at Home Good Awareness Home Safety Comments Pt a little groggy at this time and pt will benefit from her to provide supervision and assist for all ADL and mobility needs. M6 OT- IP Functional Cognition Start: 11/21/22 10:27 Freq: Status: Active Protocol: Document 11/22/22 13:00 [facility] (Rec: 11/22/22 14:00 [facility] [id number]) Cognitive Factors Limiting Selfcare Function Cognitive Comments Cognitive Assessment Comments Pt doing better to follow her back precautions now. M7 OT- IP Mobility and Balance Start: 11/21/22 10:27 Freq: Status: Active Protocol: Document 11/22/22 13:00 [facility] (Rec: 11/22/22 14:00 [facility] [id number]) OT- Bed Mobility Assessment Supine to Sit Supine to Sit Assist Minimal Assistance OT-Transfer Assessment Sit to and From Stand Sit to and from Stand Minimal Assistance Transfers Transfer Ability Standby Assistance Technique Transfer Destination Bed,Chair,Toilet Transfer Technique Stand Step Pivot Devices Transfer Assistive Devices Gait Belt,Front Wheeled Walker Comments Mobility Comments Assist to come up from sidelying to sitting at the edge of the bed. NEGRITA to stand . Pt needing vc to try to hinge at her hips in order to come to stand instead or heavy use of her arms on the armrest to come to stand. OT- Balance Assessment Sitting Balance and Reactions Static Sitting Balance Ability Fair Dynamic Sitting Balance Ability Poor Standing Balance and Reactions Static Standing Balance Ability Fair Dynamic Standing Balance Ability Fair Comments Other Balance Tests/Deviations/Treatment Pt leans into posterior tilt : in order to unwweight her trunk. Having to educated pt to hnge at her hips in order to come to stand, but pt tends to lean back on her heels and putting more pressure on her spine when coming to stand. Pt educated to use her legs more to come to stand. Pt will benefit from continued practice on technique to hinge at her hips in order to put weight on her legs to better be able to come to stand. M8 OT- IP Objective Assessments Start: 11/21/22 10:27 Freq: Status: Active Protocol: Document 11/21/22 09:05 [facility] (Rec: 11/21/22 10:44 [facility] [id number]) OT Gross Range of Motion Upper Extremity Range of Motion Assessment Within Functional Limits OT Strength Upper Extremity Strength Assessment Within Functional Limits OT-Muscle Tone Assessment Muscle Tone WNL Yes M9 OT- IP Assessment and Plan Start: 11/21/22 10:27 Freq: Status: Active Protocol: Document 11/22/22 13:00 [facility] (Rec: 11/22/22 14:00 [facility] [id number]) OT Summary Assessment and Plan Potential Rehabilitation Potential Good Analytic Complexity at Evaluation Low Summary OT Impairments Pain,Balance,Functional Mobility,Dressing,Toileting, Bathing,Toilet Transfers, Shower Transfers,Activity Tolerance Progress Towards Goals Progressing Toward Goals Assessment Summary Pt doing better today and able to tolerate going to the toilet, sponge bath, and getting dressed. Pt's main issue is pain and having difficulty with transitions and tends to lean back on her heels and heavy use of her arms to get up to the FWW and tends to forget to use her legs to assist as pt not comfortable of hinging at her hips. Pt would benefit from home health to work on her transitions so better able to use her legs to come to stand. Pt to go home with 24/7 assist. Goals Self-Feeding Goal Independent Grooming Goal Independent Dressing Goal Minimal Assistance Toileting Goal Independent Bathing Goal Standby Assistance Toilet Transfer Goal Independent Shower Transfer Goal Standby Assistance Days to Meet Goals 7 Frequency of Treatment Frequency Of Treatment Once a Day Treatment Plan OT Treatment Plan ADL Training,Functional Mobility,Patient/Family Education,Discharge Planning Discharge Recommendations OT Discharge Recommendations Home with 24/7 Assist Available,Home Health Home Equipment Needs shower chair, non slip mats, hand held shower spray, BSC Transportation Needs at Discharge Private Vehicle
[2022-11-22] MEDS: FLEETS ENEMA 1 EACH PR (15:32)
== END 2022-11-22 17:22 | disposition home or self-care (01) | DRG 455 ==
PROVIDERS: Admitting Provider Orthopaedic Surgery Orthopaedic Surgery of the Spine; PCP Physician Assistant; Referring Provider Orthopaedic Surgery Orthopaedic Surgery of the Spine; Visit Provider Orthopaedic Surgery Orthopaedic Surgery of the Spine
PROC: 0SG00AJ Fusion of Lumbar Vertebral Joint with Interbody Fusion Device, Posterior Approach, Anterior Column, Open Approach (ICD-10-PCS; principal; 2022-11-20 10:15)
DX: M43.16 Spondylolisthesis, lumbar region (principal); M48.061 Spinal stenosis, lumbar region without neurogenic claudication; M48.07 Spinal stenosis, lumbosacral region; I95.9 Hypotension, unspecified; R42 Dizziness and giddiness; G43.909 Migraine, unspecified, not intractable, without status migrainosus; G47.00 Insomnia, unspecified; E03.9 Hypothyroidism, unspecified; G89.18 Other acute postprocedural pain
CPT/HCPCS: 72100; 76000; 97116; 97162; 97165; 97530; 97535; C1713; C1831; C9290; J0171; J0690; J1100; J1170; J2060; J2405; J2704; J3010

== ENCOUNTER → 2023-06-07 17:12 | Outpatient (CLI) | payer MEDICARE, OTHER, SELFPAY ==
[2022-11-20 15:00] VITALS: BMI 24.0
--- NOTE | 2023-06-07 | DI.MG.S_ITS ---
BILATERAL DIGITAL SCREENING MAMMOGRAM 3D/2D WITH CAD: 06/07/2023 CLINICAL: Routine screening. Family history of breast cancer. Comparison is made to exams dated: 12/28/2021 mammogram, 10/20/2019 mammogram, and 05/21/2018 mammogram - [facility]. There are scattered areas of fibroglandular density in both breasts (category b / 25%-50% glandular tissue). Current study was also evaluated with a Computer Aided Detection (CAD) system. No significant masses, calcifications, or other findings are seen in either breast. There has been no significant interval change. IMPRESSION: NEGATIVE There is no mammographic evidence of malignancy. A 1 year screening mammogram is recommended. Based on the Tyrer Cuzick model (a risk assessment model) the patient's lifetime risk is 19.0% and her 10 year risk is 10.3%. According to the ACR, ACS, and NCCN guidelines, an annual breast MRI exam along with mammogram is recommended if the patient's lifetime risk is 20% or greater. This exam was interpreted at Station ID: [id number]. NOTE: For mammograms, a report in lay terms will be sent to the patient. Approximately 15% of breast malignancies will not be visualized mammographically. In the management of a palpable breast mass, a negative mammogram must not discourage biopsy of a clinically suspicious lesion. Electronically Signed By: Reshma miller/linden:06/08/2023 12:36:32 copy to: [employer] letter sent: Normal Exam ACR BI-RADS Category 1: Negative [id number]
== END ==
LOC: MAMMO 17:12
PROVIDERS: PCP Physician Assistant; Referring Provider Physician Assistant; Visit Provider Physician Assistant
DX: Z12.31 Encounter for screening mammogram for malignant neoplasm of breast (principal); Z80.3 Family history of malignant neoplasm of breast; R92.323 Mammographic fibroglandular density, bilateral breasts
CPT/HCPCS: 77063; 77067

== ENCOUNTER → 2023-11-06 10:23 | Outpatient (CLI) | payer MEDICARE, OTHER, SELFPAY ==
[2022-11-20 15:00] VITALS: BMI 24.0
--- NOTE | 2023-11-06 10:26 | DI.RAD.S_ITS ---
PROCEDURE: XR DEXA AXIAL SKELETON INDICATIONS: OSTEOPOROSIS SCREENING COMPARISON: [facility], [place], XR DEXA AXIAL SKELETON, 11/18/2020, 11:44. FINDINGS: Lumbar Spine: Bone mineral density is 0.781 g/cm2, T score -2.2, -1.5 Left Hip: Bone mineral density 0.710 g/cm2, T score -1.9 Left Femoral Neck: Bone mineral density 0.573 g/cm2, T score -2.5 Right Hip: Bone mineral density is 0.703 g/cm2, T score -2.0 Right Femoral Neck: Bone mineral density is 0.567 g/cm2, T score -2.5 Fracture Risk Calculation (when applicable): 10-year fracture risk of a major osteoporotic fracture 13 % and of a hip fracture 3% (T score greater or equal to -1.0 to: NORMAL) (T score from -1.1 to -2.4: OSTEOPENIA) (T score less than or equal to -2.5: OSTEOPOROSIS) IMPRESSION: There is osteopenia of the lumbar spine and left hip right hip. There is osteoporosis of the left femoral neck and right femoral neck. Follow-up guidelines as follows: Osteoporosis: Consider a repeat DEXA and Vertebral Fracture Assessment (VFA) exam in 2 years or sooner if medically necessary, to reassess this patient's status. Osteopenia: Consider a repeat DEXA in 2-3 years to reassess this patient's status, or if there is a new clinical indication. Normal: Consider a repeat DEXA in 5 years or sooner, or if there is a new clinical indication. All treatment decisions require clinical judgment and consideration of individual patient factors, including patient preferences, comorbidities, previous drug use, risk factors not captured in the FRAX model (e.g., frailty, falls, vitamin D deficiency, increased bone turnover, interval significant decline in bone density ) and possible under- or over-estimation of fracture risk by FRAX. In addition, the NOF Guide recommends that FDA-approved medical therapies be considered in postmenopausal women and men age >= 50 years with a: * Hip or vertebral (clinical or morphometric) fracture * T-score of <=-2.5 at the spine or hip * Ten-year fracture probability by FRAX of >= 3% for hip fracture or >=20% for major osteoporotic fracture. People with diagnosed cases of osteoporosis or at high risk for fracture should have regular bone mineral density tests. For patients eligible for Medicare, routine testing is allowed once every 2 years. The testing frequency can be increased to one year for patients who have rapidly progressing disease, those who are receiving or discontinuing medical therapy to restore bone mass, or have additional risk factors. Dictated by: Chevy Gutierrez M.D. on 11/06/2023 at 15:14 Approved by: Chevy Gutierrez M.D. on 11/06/2023 at 15:19
== END ==
PROVIDERS: PCP Physician Assistant; Referring Provider Physician Assistant; Visit Provider Physician Assistant
DX: Z78.0 Asymptomatic menopausal state (principal); M81.0 Age-related osteoporosis without current pathological fracture
CPT/HCPCS: 77080

== ENCOUNTER → 2024-01-02 09:34 | Outpatient (CLI) | payer MEDICARE, OTHER, SELFPAY ==
[2022-11-20 15:00] VITALS: BMI 24.0
--- NOTE | 2024-01-02 09:37 | DI.RAD.S_ITS ---
PROCEDURE: XR SHOULDER LT MIN 2V INDICATIONS: Pain in left shoulder TECHNIQUE: 3 views of the shoulder were acquired. COMPARISON: None. FINDINGS: Bones: No fractures or dislocations. No suspicious bony lesions. Visualized ribs appear intact. Soft tissues: No suspicious soft tissue calcifications. IMPRESSION: No acute bony abnormality. Approved by: Migdalia Michelle M.D.,Ph.D. on 01/03/2024 at 0:00
== END ==
PROVIDERS: PCP Physician Assistant; Referring Provider Physician Assistant; Visit Provider Physician Assistant
DX: M25.512 Pain in left shoulder (principal); G89.29 Other chronic pain
CPT/HCPCS: 73030

== ENCOUNTER → 2024-07-18 15:25 | Outpatient (CLI) | payer MEDICARE, OTHER, SELFPAY ==
[2022-11-20 15:00] VITALS: BMI 24.0
--- NOTE | 2024-07-18 15:30 | DI.RAD.S_ITS ---
PROCEDURE: XR WRIST RT MIN 3V INDICATIONS: RIGHT WRIST PAIN TECHNIQUE: 4 views of the wrist were acquired. COMPARISON: None. FINDINGS: Bones: No fractures or dislocations. No suspicious bony lesions. Mild polyarticular background degenerative changes of the right wrist. Scaphoid appears intact. Scapholunate interval is maintained. Soft tissues: No suspicious soft tissue calcifications. Mild soft tissue swelling. IMPRESSION: Right wrist without acute fracture or dislocation. Mild background polyarticular degenerative changes of the right wrist. If there are persistent symptoms or clinical suspicion for pathology, then repeat radiographs or advanced imaging (CT or MRI) may be considered for further evaluation. Dictated by: Carlos A Arshad M.D. on 07/18/2024 at 23:56 Approved by: Carlos A Arshad M.D. on 07/18/2024 at 23:57
== END ==
PROVIDERS: PCP Physician Assistant; Referring Provider Physician Assistant; Visit Provider Physician Assistant
DX: M25.531 Pain in right wrist (principal)
CPT/HCPCS: 73110

== ENCOUNTER → 2024-07-24 08:08 | Outpatient (CLI) | payer MEDICARE, OTHER, SELFPAY ==
[2022-11-20 15:00] VITALS: BMI 24.0
--- NOTE | 2024-07-24 08:10 | DI.MG.S_ITS ---
MM screening mammo BI: 07/24/2024. BI-RADS: 1 CLINICAL: 68-year old female for bilateral screening mammogram. Tyrer-Cuzick lifetime risk of 12.3%. Current reported family history of breast cancer: mother, sister's daughter, maternal aunt's daughter and paternal aunt's daughter. PRIOR EXAMS 06/07/2023, 12/28/2021, 10/20/2019, 05/21/2018, 03/03/2015. MAMMOGRAPHY TECHNIQUE: 2D and 3D (tomosynthesis) digital mammographic views obtained, with additional images as needed for full coverage. Current study was also evaluated with a Computer Aided Detection (CAD) system. DENSITY B. There are scattered areas of fibroglandular density. MAMMOGRAPHY FINDINGS Bilateral: No suspicious mass, asymmetry, microcalcification, or other abnormality seen. No significant change from comparison. IMPRESSION: * No evidence of malignancy. RECOMMENDATIONS Bilateral * Annual screening mammography. OVERALL ASSESSMENT CATEGORY BI-RADS-1: Negative. The [employer] recommends annual screening mammography beginning at age 40 for women with average risk of breast cancer. ELECTRONICALLY SIGNED: Lina Schilling M.D. on 07/24/2024 at 04:54:57 PM PT Interpreting Station ID: [id number]
== END ==
PROVIDERS: PCP Physician Assistant; Referring Provider Physician Assistant; Visit Provider Physician Assistant
DX: Z12.31 Encounter for screening mammogram for malignant neoplasm of breast (principal); Z80.3 Family history of malignant neoplasm of breast
CPT/HCPCS: 77063; 77067